=== PATIENT | female | born 1950 | race Caucasian/White ===

== ENCOUNTER 2021-11-07 11:33 | Day surgery (SDC) | payer MEDICARE, OTHER ==
[2021-11-06 12:53] LABS: ALBUMIN 3.8 G/DL (3.4-5.0); ANION GAP 4 (8-16); BLOOD UREA NITROGEN 16 MG/DL (7-18); BUN/CREATININE RATIO 24.2 (6.6-38.0); CALCIUM 9.2 MG/DL (8.5-10.1); CHLORIDE 108 MMOL/L (99-107); CREATININE 0.66 MG/DL (0.40-0.90); GLUCOSE 92 MG/DL (70-104); POTASSIUM 3.8 MMOL/L (3.5-5.1); SODIUM 140 MMOL/L (135-145); TOTAL CARBON DIOXIDE 27.6 MMOL/L (24-32); eGFR 88 ML/MIN
[2021-11-06 13:08] LABS: BASOPHILS % (AUTO) 0.7 % (0-1); EOSINOPHILS # (AUTO) 0.1 X10'3 (0-0.9); EOSINOPHILS % (AUTO) 3.5 % (0-6); HEMATOCRIT 28.6 % (35.0-45.0); HEMOGLOBIN 8.6 g/dl (12.0-16.0); LYMPHOCYTES # (AUTO) 0.8 X10'3 (1.1-4.8); LYMPHOCYTES % (AUTO) 23.5 % (21-51); MEAN CORPUSCULAR HEMOGLOBIN 20.2 PG (27.0-31.0); MEAN CORPUSCULAR HGB CONC 30.1 g/dL (33.0-36.5); MEAN CORPUSCULAR VOLUME 67.3 FL (78-98); MEAN PLATELET VOLUME 7.9 FL (7.4-10.4); MONOCYTES # (AUTO) 0.3 X10'3 (0-0.9); MONOCYTES % (AUTO) 8.9 % (2-12); NEUTROPHILS # (AUTO) 2.2 X10'3 (1.8-7.7); NEUTROPHILS % (AUTO) 63.4 % (42-75); PLATELET COUNT 324 X10'3 (140-440); RED BLOOD COUNT 4.25 X10'6 (4.20-5.60); RED CELL DISTRIBUTION WIDTH 24.7 % (11.5-14.5); WHITE BLOOD COUNT 3.5 X10'3 (4.5-11.0)
[2021-11-06 13:30] LABS: APTT 22 SECONDS (22-32)
[2021-11-06 13:32] LABS: ANISOCYTOSIS 3+; MICROCYTOSIS 2+; PLATELET ESTIMATE NORMAL
[2021-11-06 13:33] LABS: ELLIPTOCYTES 1+
[2021-11-06 13:34] LABS: HYPOCHROMASIA 1+
[2021-11-07] VITALS (9 sets, daily range): BP systolic 119–165; BP diastolic 58–90
[~2021-11-07] VITALS: Ht 165.1 cm; Wt 81.4 kg
[2021-11-07] MEDS ORDERED: LORazepam 0.5 MG tablet PO PRN (12:00)
[2021-11-07] MEDS ORDERED: normal saline 1,000 ML IV SCH (12:00)
[2021-11-07] MEDS ORDERED: diphenhydrAMINE 25mg capsule PO PRN (12:00)
[2021-11-07] MEDS ORDERED: OMEP20CA16 PO (12:10)
[2021-11-07] MEDS ORDERED: ESCI20TA39 PO (12:10)
[2021-11-07] MEDS ORDERED: LEVO100T9 PO (12:10)
[2021-11-07] MEDS ORDERED: FERR-119 PO (12:11)
[2021-11-07] MEDS ORDERED: iohexol 350MG/ML 100ml bottle IV ONE ×2 (14:00→15:41)
[2021-11-07] MEDS ORDERED: fentaNYL/PF 50MCG/1 ML 2ML syringe ONE (15:39)
[2021-11-07] MEDS ORDERED: midazolam 1 mg/ML 2ml injection ONE ×2 (15:39→16:11)
[2021-11-07] MEDS ORDERED: verapamil 2.5 mg/ml inj IV ONE (15:39)
[2021-11-07] MEDS ORDERED: nitroGLYCERIN-Tridil 50MG/D5W 250 ML IV ONE (15:40)
[2021-11-07] MEDS ORDERED: heparin 1,000unit/ml 10ml vial 10 ML ONE (15:40)
[2021-11-07] MEDS ORDERED: HYDROcodone/acetaminophen 5mg/325mg tablet PO PRN (17:00)
[2021-11-07] MEDS ORDERED: HYDROcodone/acetaminophen 10/325mg tab PO PRN (17:00)
[2021-11-08 06:15] LABS: ISTAT Hct MIX 26 %PCV (35-48); ISTAT Hct MIX 27 %PCV (35-48); ISTAT O2 SATURATION MIX VENOUS 55 % (60-80); ISTAT O2 SATURATION MIX VENOUS 88 % (60-80); ISTAT SOURCE BLNK
== END 2021-11-07 20:30 | disposition home or self-care (01) ==
LOC: SSTAY O 11:33
PROVIDERS: ATTEND Internal Medicine Interventional Cardiology
DX: I08.3 Combined rheumatic disorders of mitral, aortic and tricuspid valves (principal); F32.A Depression, unspecified; K21.9 Gastro-esophageal reflux disease without esophagitis; E03.9 Hypothyroidism, unspecified; M81.0 Age-related osteoporosis without current pathological fracture; I27.23 Pulmonary hypertension due to lung diseases and hypoxia; D50.9 Iron deficiency anemia, unspecified; E78.5 Hyperlipidemia, unspecified; F17.211 Nicotine dependence, cigarettes, in remission; Z79.01 Long term (current) use of anticoagulants; Z79.899 Other long term (current) drug therapy
CPT/HCPCS: 36415; 80048; 82803; 85014; 85025; 85610; 85730; 93005; 93456; 99152; 99153; C1751; C1769; C1894; J1644; J2250; J3010; J3490; J7030; Q0163; Q9967; 85008; A4620; A5120; A6258; A6402

== ENCOUNTER 2021-12-22 08:52 | Outpatient (CLI) | payer MEDICARE, OTHER ==
[~2021-12-22 08:52] MED LIST: ESCI20TA39 PO; FERR-119 PO; LEVO100T9 PO; OMEP20CA16 PO
[2021-12-22] MEDS ORDERED: iohexol 350MG/ML 100ml bottle IV ONE (09:00)
[2021-12-22 10:25] LABS: APTT 24 SECONDS (22-32)
[2021-12-22 10:28] LABS: EOSINOPHILS % (AUTO) 3.5 % (0-6); HEMATOCRIT 37.7 % (35.0-45.0); HEMOGLOBIN 12.1 g/dl (12.0-16.0); LYMPHOCYTES % (AUTO) 29.8 % (21-51); MEAN CORPUSCULAR HEMOGLOBIN 24.7 PG (27.0-31.0); MEAN CORPUSCULAR HGB CONC 31.9 g/dL (33.0-36.5); MEAN CORPUSCULAR VOLUME 77.2 FL (78-98); MEAN PLATELET VOLUME 8.1 FL (7.4-10.4); MONOCYTES % (AUTO) 6.3 % (2-12); PLATELET COUNT 229 X10'3 (140-440); RED BLOOD COUNT 4.89 X10'6 (4.20-5.60); RED CELL DISTRIBUTION WIDTH 24.7 % (11.5-14.5)
[2021-12-22 10:29] LABS: BASOPHILS % (AUTO) 0.4 % (0-1); EOSINOPHILS # (AUTO) 0.1 X10'3 (0-0.9); LYMPHOCYTES # (AUTO) 0.9 X10'3 (1.1-4.8); MONOCYTES # (AUTO) 0.2 X10'3 (0-0.9); NEUTROPHILS # (AUTO) 1.8 X10'3 (1.8-7.7)
[2021-12-22 10:36] LABS: ANION GAP 11 (8-16); BLOOD UREA NITROGEN 17 MG/DL (7-18); CALCIUM 9.1 MG/DL (8.5-10.1); CHLORIDE 108 MMOL/L (99-107); CREATININE 0.74 MG/DL (0.40-0.90); GLUCOSE 109 MG/DL (70-104); POTASSIUM 3.6 MMOL/L (3.5-5.1); SODIUM 144 MMOL/L (135-145); TOTAL CARBON DIOXIDE 24.7 MMOL/L (24-32); eGFR 77 ML/MIN
[2021-12-22 10:37] LABS: ALANINE AMINOTRANSFERASE 17 U/L (12-78); ALBUMIN 3.7 G/DL (3.4-5.0); ALBUMIN/GLOBULIN RATIO 0.9 (1.1-1.5); ALKALINE PHOSPHATASE 75 IU/L (46-116); ASPARTATE AMINO TRANSFERASE 12 U/L (10-37); BILIRUBIN,TOTAL 0.3 MG/DL (0.1-1.0); TOTAL PROTEIN 7.8 G/DL (6.4-8.2)
[2021-12-22 11:21] LABS: ELLIPTOCYTES 1+; PLATELET ESTIMATE NORMAL; SCHISTOCYTES FEW
[2021-12-22 11:22] LABS: ANISOCYTOSIS 3+; MICROCYTOSIS 1+
== END 2021-12-22 23:59 | disposition home or self-care (01) ==
LOC: RAD 08:52
PROVIDERS: ATTEND Internal Medicine Cardiovascular Disease
DX: Z01.818 Encounter for other preprocedural examination (principal); I08.0 Rheumatic disorders of both mitral and aortic valves; I70.0 Atherosclerosis of aorta; K42.9 Umbilical hernia without obstruction or gangrene; M41.85 Other forms of scoliosis, thoracolumbar region; M51.35 Other intervertebral disc degeneration, thoracolumbar region; I71.2 Thoracic aortic aneurysm, without rupture; J98.11 Atelectasis; J84.10 Pulmonary fibrosis, unspecified; I65.29 Occlusion and stenosis of unspecified carotid artery; Z96.642 Presence of left artificial hip joint; Z87.891 Personal history of nicotine dependence; Z79.899 Other long term (current) drug therapy
CPT/HCPCS: 36415; 71046; 71275; 74174; 80053; 85008; 85025; 85610; 85730; 87811; 94010; 94727; 94729; J3490; Q9967

== ENCOUNTER 2021-12-28 14:41 | Outpatient (CLI) | payer MEDICARE, OTHER ==
[2021-12-22 10:12] LABS: BASOPHILS % (AUTO) 0.4 % (0-1); EOSINOPHILS # (AUTO) 0.1 X10'3 (0-0.9); EOSINOPHILS % (AUTO) 3.5 % (0-6); HEMATOCRIT 37.7 % (35.0-45.0); HEMOGLOBIN 12.1 g/dl (12.0-16.0); LYMPHOCYTES # (AUTO) 0.9 X10'3 (1.1-4.8); LYMPHOCYTES % (AUTO) 29.8 % (21-51); MEAN CORPUSCULAR HEMOGLOBIN 24.7 PG (27.0-31.0); MEAN CORPUSCULAR HGB CONC 31.9 g/dL (33.0-36.5); MEAN CORPUSCULAR VOLUME 77.2 FL (78-98); MEAN PLATELET VOLUME 8.1 FL (7.4-10.4); MONOCYTES # (AUTO) 0.2 X10'3 (0-0.9); MONOCYTES % (AUTO) 6.3 % (2-12); NEUTROPHILS # (AUTO) 1.8 X10'3 (1.8-7.7); PLATELET COUNT 229 X10'3 (140-440); RED BLOOD COUNT 4.89 X10'6 (4.20-5.60); RED CELL DISTRIBUTION WIDTH 24.7 % (11.5-14.5)
[2021-12-22 10:14] LABS: APTT 24 SECONDS (22-32)
[2021-12-22 10:26] LABS: ALANINE AMINOTRANSFERASE 17 U/L (12-78); ALBUMIN 3.7 G/DL (3.4-5.0); ALBUMIN/GLOBULIN RATIO 0.9 (1.1-1.5); ALKALINE PHOSPHATASE 75 IU/L (46-116); ANION GAP 11 (8-16); ASPARTATE AMINO TRANSFERASE 12 U/L (10-37); BILIRUBIN,TOTAL 0.3 MG/DL (0.1-1.0); BLOOD UREA NITROGEN 17 MG/DL (7-18); CALCIUM 9.1 MG/DL (8.5-10.1); CHLORIDE 108 MMOL/L (99-107); CREATININE 0.74 MG/DL (0.40-0.90); GLUCOSE 109 MG/DL (70-104); POTASSIUM 3.6 MMOL/L (3.5-5.1); SODIUM 144 MMOL/L (135-145); TOTAL CARBON DIOXIDE 24.7 MMOL/L (24-32); TOTAL PROTEIN 7.8 G/DL (6.4-8.2); eGFR 77 ML/MIN
[2021-12-22 11:20] LABS: ANISOCYTOSIS 3+; ELLIPTOCYTES 1+; MICROCYTOSIS 1+; PLATELET ESTIMATE NORMAL; SCHISTOCYTES FEW
[~2021-12-28] VITALS: Ht 165.1 cm; Wt 80.7 kg
[2021-12-28 14:53] VITALS: BP 137/68
--- NOTE | 2021-12-28 14:54 | NUR ---
Patient was seen in the [facility] clinic today to consult with Dr. Loomis, Dr. Imelda Mcleod and Dr. Lim. [facility] test completed. Vital signs measured. Patient education reviewed and questions answered.
== END 2021-12-28 23:59 | disposition home or self-care (01) ==
LOC: TAVR 14:41
PROVIDERS: ATTEND Internal Medicine Cardiovascular Disease
DX: I35.0 Nonrheumatic aortic (valve) stenosis (principal); R06.02 Shortness of breath; I65.29 Occlusion and stenosis of unspecified carotid artery
CPT/HCPCS: 36415; 80053; 85008; 85025; 85610; 85730

== ENCOUNTER 2022-01-25 08:01 | Inpatient (IN) | payer MEDICARE, OTHER ==
[2022-01-17 12:55] LABS: CLARITY,URINE SLIGHTLY CLOUDY (Clear); COLOR,URINE YELLOW (Yellow); GLUCOSE, URINE NEGATIVE (Neg); KETONES,URINE NEGATIVE (Neg); LEUKOCYTE ESTERASE ,URINE NEGATIVE (Neg); NITRITES, URINE NEGATIVE (Neg); OCCULT BLOOD,URINE NEGATIVE (Neg); PH,URINE 5.5 (4.8-8.0); PROTEIN,URINE NEGATIVE (Neg); UROBILINOGEN,URINE 0.2 E.U/dL (0.2-1.0)
[2022-01-17 12:57] LABS: UA COLLECTION TYPE CLN CATCH MIDSTREAM
[2022-01-17 12:59] LABS: BASOPHILS % (AUTO) 0.7 % (0-1); EOSINOPHILS # (AUTO) 0.1 X10'3 (0-0.9); EOSINOPHILS % (AUTO) 3.3 % (0-6); LYMPHOCYTES # (AUTO) 1.1 X10'3 (1.1-4.8); LYMPHOCYTES % (AUTO) 27.9 % (21-51); MEAN CORPUSCULAR HEMOGLOBIN 26.1 PG (27.0-31.0); MEAN CORPUSCULAR HGB CONC 33.4 g/dL (33.0-36.5); MEAN CORPUSCULAR VOLUME 78.1 FL (78-98); MEAN PLATELET VOLUME 7.8 FL (7.4-10.4); MONOCYTES # (AUTO) 0.2 X10'3 (0-0.9); MONOCYTES % (AUTO) 6.3 % (2-12); NEUTROPHILS # (AUTO) 2.4 X10'3 (1.8-7.7); NEUTROPHILS % (AUTO) 61.8 % (42-75); PRE OP HEMATOCRIT 37.5 % (35.0-45.0); PRE OP HEMOGLOBIN 12.5 g/dL (12.0-16.0); PRE OP PLATELET COUNT 230 X10'3 (140-440)
[2022-01-17 13:01] LABS: FINE GRANULAR CAST 0-3 /LPF (NEGATIVE); MUCUS STRANDS MANY /LPF (Neg); SQUAMOUS EPITHELIAL CELL,UR MANY /LPF (FEW)
[2022-01-17 13:02] LABS: BACTERIA,URINE 2+ /HPF (Neg); WBC,URINE 0-4 /HPF (0-4)
[2022-01-17 13:04] LABS: RBC,URINE 0-2 /HPF (0-2)
[2022-01-17 13:05] LABS: URIC ACID CRYSTALS FEW /HPF (NEGATIVE)
[2022-01-17 13:10] LABS: PRE OP PROTIME 10.6 SECONDS (9.0-12.0)
[2022-01-17 13:58] LABS: ALBUMIN 3.8 G/DL (3.4-5.0); ALBUMIN/GLOBULIN RATIO 0.9 (1.1-1.5); ALKALINE PHOSPHATASE 76 IU/L (46-116); BLOOD UREA NITROGEN 17 MG/DL (7-18); CALCIUM 9.3 MG/DL (8.5-10.1); CHLORIDE 108 MMOL/L (99-107); CREATININE 0.68 MG/DL (0.40-0.90); PRE OP ALT 17 U/L (30-65); PRE OP ANION GAP 12 (8-16); PRE OP AST 18 U/L (10-37); PRE OP BILIRUB, TOTAL 0.3 MG/DL (0.0-1.0); PRE OP GLUCOSE 85 MG/DL (70-104); PRE OP POTASSIUM 3.9 MMOL/L (3.4-5.1); PRE OP SODIUM 143 MMOL/L (135-145); TOTAL PROTEIN 8.1 G/DL (6.4-8.2); eGFR 85 ML/MIN
[2022-01-17 14:49] LABS: ANISOCYTOSIS 3+; ELLIPTOCYTES 1+; MICROCYTOSIS 1+; PLATELET ESTIMATE NORMAL; SCHISTOCYTES FEW
[~2022-01-25] VITALS: Ht 165.1 cm; Wt 79.7 kg
[2022-01-25] VITALS (22 sets, daily range): BP systolic 119–189; BP diastolic 55–88
[~2022-01-25 08:01] MED LIST changes: -FERR-119 PO; +FERR324T23 PO; +TUMERIC PO; +aspirin 325mg tablet PO ONE; +ceFAZolin inj. 2,000 MG in dextrose 5%-water 100 ML IV ONE; +famotidine 20mg tablet PO ONE; +nitroPRUSSIDE (NIPRIDE) (200MCG/ML) 100ML Drip IV SCH; +ondansetron/PF 4mg/2ml inj IV PRN; +phenylephrine inj 50 MG in normal saline 250ml IV solN IV SCH; +protamine sulfate 10mg/ml inj. ONE; +ringers solution, lacted 1,000 ML IV SCH; +vancomycin 1,500 MG in NS 300ml IV soln IV ONE
[2022-01-25] MEDS ORDERED: heparin 1,000 UNITS/NS 500ml 500 ML ONE (12:03)
[2022-01-25] MEDS ORDERED: iohexol 350MG/ML 100ml bottle IV ONE (12:03)
[2022-01-25] MEDS ORDERED: fentaNYL/PF 50MCG/1 ML 2ML syringe ONE (12:11)
[2022-01-25] MEDS ORDERED: propofol inj 20 ML IV ONE ×2 (12:11)
[2022-01-25] MEDS ORDERED: midazolam 1 mg/ML 2ml injection ONE (12:11)
[2022-01-25] MEDS ORDERED: LIDOcaine 1% 30ml preserv. free vial ONE (12:20)
[2022-01-25] MEDS ORDERED: heparin 1,000unit/ml 10ml vial 10 ML ONE (12:31)
[2022-01-25] MEDS ORDERED: insulin Lispro (HumaLOG) vial - multi-dose SQ SCH (13:30)
[2022-01-25] MEDS ORDERED: diphenhydrAMINE 25mg capsule PO PRN (13:30)
[2022-01-25] MEDS ORDERED: pantoprazole 40mg Tablet.DR PO PRN (13:30)
[2022-01-25] MEDS: normal saline 1000ml 1,000 ML IV SCH ×2 (13:30→23:30)
[2022-01-25] MEDS ORDERED: docusate sod 100mg capsule PO PRN (13:30)
[2022-01-25] MEDS ORDERED: proCHLORperazine 10 MG/2 ml inj IV PRN (13:30)
[2022-01-25] MEDS ORDERED: dextrose 50%-water 50ml dispensing syringe IV PRN ×2 (13:30)
[2022-01-25] MEDS ORDERED: MESSAGE TO PHARMACY PO ONE (13:30)
[2022-01-25] MEDS ORDERED: glucagon, human recombinant 1mg kit SUBCUT PRN (13:30)
[2022-01-25] MEDS ORDERED: ondansetron/PF 4mg/2ml inj IV PRN (13:30)
[2022-01-25] MEDS ORDERED: hydrALAZINE 20mg/ml inj. IV PRN (13:30)
[2022-01-25] MEDS ORDERED: labetalol 20mg/4ml (5mg/ml) syringe IV PRN (13:30)
[2022-01-25] MEDS ORDERED: DEXTROSE 15 GM of carb/4 tabs (each vial/BOTTLE has 4 tablets) PO PRN ×2 (13:30)
--- NOTE | 2022-01-25 13:32 | NUR ---
Received from OR via BED, accompanied by Anesthesiologist DR ROUSE and report given by Anesthesiologist AND HEATSET WINDER OPERATOR RN. PT DROWSY, DENIES PAIN. PATIENCE POLLACK W/YENNY SHIN W/CLAY CDI, SOFT, NO OOZING OR HEMATOMA NOTED. NEURO CHECKS COMPLETE AND INTACT, EQUAL PBX OPERATOR/ AND PUSH PULL ALL EXTREMITIES, FROWN/SMILE SYMMETRICAL, EYE LIFT AND SQUINT EQUAL. CUFF BP AND ARTERIAL BP 20-40 POINTS DIFFERENCE. Addendum: 01/25/22 at 1523 by Radha Andujar RN Amended: Links added.
[2022-01-25] MEDS ORDERED: ALPRAZolam 0.25mg tablet PO PRN (14:00)
[2022-01-25] MEDS ORDERED: acetaminophen 325mg tablet PO PRN (16:00)
[2022-01-25] MEDS: ceFAZolin 1GM/D5W- ADD-VANTAGE 50 ML IV SCH (16:00)
[2022-01-25] MEDS: sod chloride 0.9% 10ml flush syringe IV SCH (16:00)
--- NOTE | 2022-01-25 16:42 | NUR ---
Report called to receiving nurse. PT VOIDED ON BEDPAN, SOHEILA CARE PROVIDED. Transferred via BED ON CM, 1 BAG OF Belongings, CANE, GLASSES AND SUITCASE SENT W/PT TO ROOM 3027A. RECEIVING RN AT BEDSIDE TO RECEIVE PT, BLL, CALL LIGHT GIVEN, SIDE RAILS UP X 2. ASSESSSED PATIENCE POLLACK W/RECEIVING RN, NO CHANGES NOTED. Special Issues communicated to receiving nurse. YES. Addendum: 01/25/22 at 1728 by Radha Andujar RN Amended: Links added.
--- NOTE | 2022-01-25 19:09 | NUR ---
Problems reprioritized. Patient report given, questions answered & plan of care reviewed with Yvette GALVIN, patient stable at transfer of care.
[2022-01-25] MEDS ORDERED: non-formulary drug (Omeprazole 1 CAP) PO SCH (21:00)
[2022-01-25] MEDS ORDERED: ESCITALOPRAM OXALATE 5 MG TABLET PO SCH (21:00)
[2022-01-25] MEDS ORDERED: insulin glargine (Lantus) pen - multi-dose SQ SCH (21:00)
[2022-01-25] MEDS: vancomycin/NS 1 GM ADD-VANTAGE 250 ML IV SCH (22:00)
[2022-01-26 02:00] VITALS: BP 131/95
[2022-01-26 06:00] VITALS: BP 120/60
[2022-01-26 06:15] LABS: MEAN CORPUSCULAR HEMOGLOBIN 26.8 PG (27.0-31.0)
[2022-01-26 06:17] LABS: HEMATOCRIT 35.9 % (35.0-45.0); HEMOGLOBIN 11.8 g/dl (12.0-16.0); MEAN CORPUSCULAR VOLUME 81.2 FL (78-98); MEAN PLATELET VOLUME 8.1 FL (7.4-10.4); RED BLOOD COUNT 4.42 X10'6 (4.20-5.60); RED CELL DISTRIBUTION WIDTH 19.4 % (11.5-14.5); WHITE BLOOD COUNT 4.9 X10'3 (4.5-11.0)
--- NOTE | 2022-01-26 06:20 | NUR ---
Patient in room [facility] 3027. I have received report from DEBORAH STEVENSON, and had the opportunity to ask questions and assume patient care. Addendum: 01/26/22 at 0622 by Domi Whitley RN Patient in room [place] [id number]. I have received report from KAMAR HA, and had the opportunity to ask questions and assume patient care.
[2022-01-26 06:22] LABS: NEUTROPHILS % (AUTO) 70.6 % (42-75)
[2022-01-26 06:23] LABS: BASOPHILS % (AUTO) 0.3 % (0-1); EOSINOPHILS # (AUTO) 0.1 X10'3 (0-0.9); EOSINOPHILS % (AUTO) 2.7 % (0-6); LYMPHOCYTES # (AUTO) 0.9 X10'3 (1.1-4.8); LYMPHOCYTES % (AUTO) 18.1 % (21-51); MONOCYTES # (AUTO) 0.4 X10'3 (0-0.9); MONOCYTES % (AUTO) 8.3 % (2-12); NEUTROPHILS # (AUTO) 3.5 X10'3 (1.8-7.7)
[2022-01-26 06:43] LABS: PLATELET COUNT 175 X10'3 (140-440)
[2022-01-26 06:49] LABS: ALANINE AMINOTRANSFERASE 16 U/L (12-78); ALBUMIN 3.3 G/DL (3.4-5.0); ALBUMIN/GLOBULIN RATIO 0.9 (1.1-1.5); ALKALINE PHOSPHATASE 66 IU/L (46-116); ANION GAP 12 (8-16); ASPARTATE AMINO TRANSFERASE 26 U/L (10-37); BILIRUBIN,TOTAL 0.4 MG/DL (0.1-1.0); BLOOD UREA NITROGEN 16 MG/DL (7-18); BUN/CREATININE RATIO 24.6 (6.6-38.0); CALCIUM 8.6 MG/DL (8.5-10.1); CHLORIDE 104 MMOL/L (99-107); CREATININE 0.65 MG/DL (0.40-0.90); GLUCOSE 99 MG/DL (70-104); POTASSIUM 4.2 MMOL/L (3.5-5.1); SODIUM 138 MMOL/L (135-145); TOTAL CARBON DIOXIDE 22.1 MMOL/L (24-32); TOTAL PROTEIN 6.8 G/DL (6.4-8.2); eGFR 89 ML/MIN
--- NOTE | 2022-01-26 07:04 | NUR ---
Problems reprioritized. Patient report given, questions answered & plan of care reviewed with Domi.
[2022-01-26] MEDS ORDERED: TUMERIC 1000 MG PO SCH (08:00)
[2022-01-26] MEDS ORDERED: levoTHYROXINE 100mcg tablet PO SCH (08:00)
[2022-01-26] MEDS ORDERED: ferrous gluconate 324mg tablet PO SCH (08:00)
[2022-01-26] MEDS: ceFAZolin 1GM/D5W- ADD-VANTAGE 50 ML IV SCH ×2 (08:18)
[2022-01-26] MEDS: sod chloride 0.9% 10ml flush syringe IV SCH ×2 (08:21)
[2022-01-26] MEDS ORDERED: ASPI-1265 PO (09:08)
[2022-01-26] MEDS: vancomycin/NS 1 GM ADD-VANTAGE 250 ML IV SCH (09:14)
[2022-01-26 11:00] VITALS: BP 100/51
--- NOTE | 2022-01-26 14:05 | NUR ---
PT STABLE FOR DISCHARGE PER MD. BELONGINGS RETURNED TO PT. PIV REMOVED WITH TIP INTACT. DISCHARGE AND FOLLOW UP INSTRUCTIONS REVIEWED WITH PT. PT VERBALIZED UNDERSTANDING. PT DISCHARGED TO HOME. PT WAS TRANSFERRED TO PRIVATE VEHICLE BY HOSPITAL STAFF.
== END 2022-01-26 13:15 | disposition home or self-care (01) | DRG 267 ==
LOC: PAS IN 08:01 → PCU 3S 16:40
PROVIDERS: ADMIT Internal Medicine Cardiovascular Disease; ATTEND Internal Medicine Cardiovascular Disease
PROC: 02RF38Z Replacement of Aortic Valve with Zooplastic Tissue, Percutaneous Approach (ICD-10-PCS; 2022-01-25)
PROC: B41D1ZZ Fluoroscopy of Aorta and Bilateral Lower Extremity Arteries using Low Osmolar Contrast (ICD-10-PCS; principal; 2022-01-25 12:12)
DX: I35.0 Nonrheumatic aortic (valve) stenosis (principal); Z00.6 Encounter for examination for normal comparison and control in clinical research program; E03.9 Hypothyroidism, unspecified; K21.9 Gastro-esophageal reflux disease without esophagitis; M25.561 Pain in right knee; E78.5 Hyperlipidemia, unspecified; I10 Essential (primary) hypertension; I45.4 Nonspecific intraventricular block
CPT/HCPCS: 33361; 36415; 71045; 71046; 76937; 80053; 81001; 82948; 83735; 83880; 84443; 85008; 85025; 85347; 85610; 85730; 86885; 86900; 86901; 86920; 87081; 87811; 93005; 93308; A4618; A6258; A6449; C1756; C1760; C1769; C1894; G0378; J0690; J1644; J1815; J2250; J2370; J2704; J2720; J3010; J3370; J3490; J7030; J7040; J7050; J7060; J7120; Q9967

== ENCOUNTER 2024-05-11 08:43 | Outpatient (CLI) | payer MEDICARE ==
[2024-05-08 15:05] LABS: ALBUMIN 3.7 G/DL (3.4-5.0); ANION GAP 7 (8-16); BLOOD UREA NITROGEN 19 MG/DL (7-18); BUN/CREATININE RATIO 20.2 (10.0-20.0); CALCIUM 9.7 MG/DL (8.5-10.1); CHLORIDE 109 MMOL/L (99-107); CREATININE 0.94 MG/DL (0.40-0.90); GLUCOSE 135 MG/DL (70-104); SODIUM 142 MMOL/L (135-145); TOTAL CARBON DIOXIDE 26.4 MMOL/L (24-32); eGFR 58 ML/MIN
[~2024-05-11 08:43] MED LIST changes: -aspirin 325mg tablet PO ONE; -ceFAZolin inj. 2,000 MG in dextrose 5%-water 100 ML IV ONE; -famotidine 20mg tablet PO ONE; -nitroPRUSSIDE (NIPRIDE) (200MCG/ML) 100ML Drip IV SCH; -ondansetron/PF 4mg/2ml inj IV PRN; -phenylephrine inj 50 MG in normal saline 250ml IV solN IV SCH; -protamine sulfate 10mg/ml inj. ONE; -ringers solution, lacted 1,000 ML IV SCH; -vancomycin 1,500 MG in NS 300ml IV soln IV ONE
[2024-05-11] MEDS ORDERED: iohexol 350MG/ML 100ml bottle IV ONE (09:12)
== END 2024-05-11 23:59 | disposition home or self-care (01) ==
LOC: RAD 08:43
PROVIDERS: ATTEND Internal Medicine Interventional Cardiology
DX: I77.810 Thoracic aortic ectasia (principal); K44.9 Diaphragmatic hernia without obstruction or gangrene; M16.11 Unilateral primary osteoarthritis, right hip; M47.814 Spondylosis without myelopathy or radiculopathy, thoracic region; K76.0 Fatty (change of) liver, not elsewhere classified; I35.0 Nonrheumatic aortic (valve) stenosis; I70.8 Atherosclerosis of other arteries; E78.5 Hyperlipidemia, unspecified; Z96.642 Presence of left artificial hip joint; Z90.49 Acquired absence of other specified parts of digestive tract
CPT/HCPCS: 36415; 71275; 74174; 80048; Q9967